=== PATIENT | female | born 1960 | race Caucasian/White ===

== ENCOUNTER 2018-06-15 01:10 | Emergency (ER) | payer OTHER ==
[2018-06-15] MEDS ORDERED: TRANEXAMIC ACID 1,000 MG/10 ML VIAL IRR (01:53)
[2018-06-15] MEDS: OXYMETAZOLINE 0.05% 15 ML NAS SPRAY NASAL (01:57)
== END 2018-06-15 03:03 | disposition home or self-care (01) ==
LOC: E/R 01:10
DX: S02.2XXA Fracture of nasal bones, initial encounter for closed fracture (principal); R04.0 Epistaxis; R40.2142 Coma scale, eyes open, spontaneous, at arrival to emergency department; R40.2252 Coma scale, best verbal response, oriented, at arrival to emergency department; R40.2362 Coma scale, best motor response, obeys commands, at arrival to emergency department; W22.8XXA Striking against or struck by other objects, initial encounter; Y92.009 Unspecified place in unspecified non-institutional (private) residence as the place of occurrence of the external cause
CPT/HCPCS: 99282; Z7502